=== PATIENT | male | born 1980 | race Caucasian/White ===

== ENCOUNTER 2021-12-11 21:45 | Emergency (ER) | payer OTHER, BC | END 2021-12-11 22:35 | disposition home or self-care (01) | LOC: LL.ED 21:45 | DX: S50.12XA Contusion of left forearm, initial encounter (principal); S50.11XA Contusion of right forearm, initial encounter; W22.09XA Striking against other stationary object, initial encounter | CPT/HCPCS: 73090-LT; 99283 ==